=== PATIENT | male | born 2000 | race Caucasian/White ===

== ENCOUNTER 2019-07-27 11:33 | Emergency (ER) | payer OTHER ==
[2019-07-27] MEDS: Ibuprofen TAB* 600 MG PO ONE (13:20)
[2019-07-27 13:26] VITALS: BP 122/76
--- NOTE | 2019-07-27 17:51 | ED ---
Laceration/Wound HPI - HPI Summary HPI Summary: Patient is a 19-year-old male who presents emergency department for laceration to left thumb that occurred today. Patient states he was cutting a bagel when the knife slipped and cut his left thumb. Last tetanus immunization was within 5 years. Patient. Symptoms are mild in severity. No modifying factors. - History of Current Complaint Stated Complaint: KNIFE THROUGH LT THUMB Time Seen by Provider: 07/27/19 12:28 Hx Obtained From: Patient Pain Intensity: 7 Pain Scale Used: 0-10 Numeric - Allergy/Home Medications Allergies/Adverse Reactions: Allergies Allergy/AdvReac Type Severity Reaction Status Date / Time Sulfa (Sulfonamide Allergy Rash Verified 07/27/19 11:37 Antibiotics) PMH/Surg Hx/FS Hx/Imm Hx Previously Healthy: Yes - Immunization History Date of Tetanus Vaccine: 2017 Infectious Disease History: No Infectious Disease History: Denies: Traveled Outside the [place] in Last 30 Days - Family History Known Family History: Positive: Non-Contributory - Social History Occupation: Employed Full-time Lives: With Family Alcohol Use: Weekly Substance Use Type: Reports: None Smoking Status (MU): Never Smoked Tobacco Review of Systems Positive: Other - laceration to left thumb All Other Systems Reviewed And Are Negative: Yes Physical Exam Triage Information Reviewed: Yes Vital Signs On Initial Exam: Initial Vitals Temp Pulse Resp BP Pulse Ox 98.5 F 77 18 130/85 98 07/27/19 11:34 07/27/19 11:34 07/27/19 11:34 07/27/19 11:34 07/27/19 11:34 Vital Signs Reviewed: Yes Appearance: Positive: Well-Appearing - Pt. sitting on bed in NAD. Friend present. Skin: Positive: Warm, Dry Head/Face: Positive: Normal Head/Face Inspection Eyes: Positive: Normal, EOMI Neck: Positive: Supple Musculoskeletal: Positive: Other - <1cm superficial skin flap noted to distal aspect of left thumb. Mild active bleeding. Full ROM of digit. Neurological: Positive: Normal, CN Intact II-III Psychiatric: Positive: Affect/Mood Appropriate Procedures - Sedation Patient Received Moderate/Deep Sedation with Procedure: No Diagnostics - Vital Signs Vital Signs Temp Pulse Resp BP Pulse Ox 07/27/19 13:23 97.5 F 67 16 122/76 99 07/27/19 11:34 98.5 F 77 18 130/85 98 - Laboratory Lab Statement: Any lab studies that have been ordered have been reviewed, and results considered in the medical decision making process. Laceration Repair Course/Dx - Course Course Of Treatment: Patient with small skin flap laceration. Wound was cleaned and Surgicel was placed with a compression dressing. Hemostasis obtained. Advised patient to keep dressing in place until tomorrow. To ice and elevate. Keep wound clean and dry. To return to ER for redness, swelling or drainage from wound. Patient understands and agrees with plan. - Differential Dx Differental Diagnoses: Abrasion, Laceration - Clinical Impression Provider Diagnoses: Laceration Discharge ED - Sign-Out/Discharge Documenting (check all that apply): Patient Departure - Discharge Plan Condition: Improved Disposition: HOME Patient Education Materials: Laceration (ED) Referrals: [facility] [Outside] Additional Instructions: Follow up with [facility] if needed Keep pressure dressing on until tomorrow Ice and elevate intermittently Tylenol or Motrin for pain as directed Return to ER if symptoms change or worsen - Billing Disposition and Condition Condition: IMPROVED Disposition: Home - Attestation Statements Provider Attestation: I was available for consultation for this patient. I did not evaluate the patient or participate in any medical decision making or disposition decisions unless I am specifically named in the chart as having consulted on the patient. If I have consulted on the patient, please see my own ED note on the patient encounter. Benita Patel MD
== END 2019-07-27 13:23 | disposition home or self-care (01) ==
LOC: ED 11:33
DX: S61.012A Laceration without foreign body of left thumb without damage to nail, initial encounter (principal); W26.0XXA Contact with knife, initial encounter; Y92.9 Unspecified place or not applicable; Z88.2 Allergy status to sulfonamides
CPT/HCPCS: 99282; A9270-GY